=== PATIENT | female | born 1995 | race American Indian/Alaskan Native ===

== ENCOUNTER 2018-01-04 08:28 | Inpatient (IN) | payer MEDICAID ==
[2018-01-04] MEDS ORDERED: ePHEDrine SULFATE IV PRN (08:54)
[2018-01-04] MEDS ORDERED: BRETHINE SUB-Q PRN (08:54)
[2018-01-04] MEDS ORDERED: XYLOCAINE 2% INFILTRATI NR (08:54)
[2018-01-04] MEDS ORDERED: POLYCILLIN/NS 2 GM/100 ML 2 GM/100 ML BAG IV SCH (09:00)
--- NOTE | 2018-01-04 09:15 | History and Physical Report ---
History of Present Illness Date of examination: 01/04/18 (IOL d/t IUGR) Date of admission: 01/04/18 08:28 History of present illness: EDC Calculations LMP: 01/07/2018 EDC Confirmation: 01/07/2018 Gestational Age: 24 4/7 weeks Past History : 4 Term Births: 2 Premature Births: 0 Living Children: 2 Para: 2 Mult. Births: 0 Prev : 0 Prev. attempt? 0 Aborta: 1 Elect. Ab: 1 Spont. Ab: 0 Ectopics: 0 # 1 Delivery date: 2013 Weeks Gestation: 9 Delivery type: EAB # 2 Delivery date: 2016 Weeks Gestation: term labor: no Delivery type: Anesthesia type: epidural Delivery location: [place] Infant Sex: Male weight: 7#7oz # 3 Delivery date: 2017 Weeks Gestation: term labor: no Delivery type: Anesthesia type: epidural Delivery location: [place] [facility] Sex: Male weight: 6# Past Medical History: Negative Past Medical History Past Surgical History: negative Past Medical History Anesthesia Complications: negative Anemia: negative Autoimmune Disorder: negative Bleeding Disorder: negative Blood Transfusions: negative Breast Disease: negative Diabetes: negative Heart Disease: negative Hypertension: negative Hepatitis/Liver Disease: negative Kidney Disease/UTI: negative Neurologic/Epilepsy/Migraines: negative Phlebitis/Varicosities: negative Psychiatric: negative Pulmonary Disease/Asthma: negative Thyroid Disease: negative Hospitalizations: negative Surgery (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 of genital herpes: no Partner hx. of genital herpes: no Rash, Viral, or Febrile illness since last LMP? no TB Risk: no Genetic History Congenital Heart Defect: Mom: no Dad: no Tierra Disease: Mom: no Dad: no Thalassemia Mom: no Dad: no Neural Tube Defect Mom: no Dad: no Down's Syndrome Mom: no Dad: no Joey-Sachs Mom: no Dad: no Sickle Cell Disease/Trait Mom: no Dad: no Hemophilia Mom: no Dad: no Muscular Dystrophy Mom: no Dad: no Cystic Fibrosis Mom: no Dad: no [place] Chorea Mom: no Dad: no Mental Retardation Mom: no Dad: no Fragile X Mom: no Dad: no Other Genetic/Chromosomal Disorder Mom: no Dad: no Child w/other defect Mom: no Dad: no Active Medications (reviewed today): None Current Allergies (reviewed today): No known allergies Laboratory Results Urine HCG: positive Review of Systems General Denies fever, chills, sweats, anorexia, fatigue, weakness, malaise, weight loss and sleep disorder. Denies nausea, vomiting, headache, swelling of legs, abdominal pain, vaginal discharge, vaginal bleeding and contractions. Denies vaginal discharge, incontinence, dysuria, hematuria, urinary frequency, amenorrhea, menorrhagia, abnormal vaginal bleeding, pelvic pain, genital sores, decreased libido, painful periods, painful sex, urinary urgency, hot flashes, vaginal dryness, vaginal itching and vaginal odor. CV Denies chest pains, palpitations, syncope, dyspnea on exertion, orthopnea, PND and peripheral edema. Resp Denies cough, dyspnea at rest, excessive sputum, hemoptysis, wheezing and pleurisy. GI Denies nausea, vomiting, diarrhea, constipation, change in bowel habits, abdominal pain, melena, hematochezia, jaundice, gas/bloating, indigestion/ heartburn, dysphagia and odynophagia. Endo Denies cold intolerance, heat intolerance, polydipsia, polyphagia, polyuria and unusual weight change. Breast Denies left breast lump, right breast lump, nipple discharge, bloody discharge from nipple, breast pain, abnormal mammogram and breast enlargement. MS Denies back pain, joint pain, joint swelling, muscle cramps, muscle weakness, stiffness, arthritis, sciatica, restless legs, leg pain at night and leg pain with exertion. Derm Denies rash, itching, dryness and suspicious lesions. Neuro Denies paralysis, paresthesias, headache, seizures, tremors, vertigo, transient blindness, frequent falls, frequent headaches and difficulty walking. Psych Denies depression, anxiety, irritability and mood swings. Eyes Denies blurring, diplopia, irritation, discharge, vision loss, eye pain and photophobia. ENT Denies earache, ear discharge, tinnitus, decreased hearing, nasal congestion, nosebleeds, sore throat and hoarseness. Allergy Denies urticaria, allergic rash, hay fever and recurrent infections. Heme Denies abnormal bruising, bleeding and enlarged lymph nodes. PHYSICAL EXAM HEENT: PERRLA, normal conjunctiva, external nose and nasal mucosa normal, oropharynx clear Neck/Thyroid: supple, thyroid normal Skin no significant abnormal lesions or rashes Chest: respiratory effort normal, clear to auscultation Breasts: normal without skin changes or masses CV: regular, normal S1-S2, no murmur, no rub, no gallop Abdomen: normal bowel sounds, soft, nontender, no HSM Musculoskeletal: grossly normal ROM in joints, no joint tenderness or muscle weakness Neuro: grossly normal DTRs, sensation, strength, cranial nerves Extremities: no clubbing, cyanosis, or edema [employer] Exams Fundal Ht: 24 size: AGA FHT: + activity: + Past History - Obstetrical History Expected Date of Delivery: 01/07/18 Actual Gestation: 39 Week(s) 4 Day(s) : 4 Para: 2 Hx # Term Pregnancies: 2 Induced : 1 Number of Living Children: 2 Medications and Allergies Allergies Allergy/AdvReac Type Severity Reaction Status Date / Time No Known Allergies Allergy Unverified 01/04/18 09:33 Home Medications Medication Instructions Recorded Confirmed Last Taken Type Pnv No.95/Ferrous Fum/Folic AC 1 tab PO DAILY 01/04/18 01/04/18 01/02/18 History [ Vitamins Tablet] Active Meds: Active Medications Ephedrine Sulfate (Ephedrine Sulfate) 10 mg IV Q2M PRN PRN Reason: Hypotension Fentanyl (Sublimaze) 100 mcg IV Q2H PRN PRN Reason: Labor Pain Lactated Ringer's (Lactated Ringers) 1,000 mls @ 125 mls/hr IV DIRECT PRATIBHA Oxytocin/Sodium Chloride (Pitocin/Ns 20 Unit/1000ml Drip) 20 units in 1,000 mls @ 125 mls/hr IV DIRECT PRATIBHA Oxytocin/Sodium Chloride (Pitocin/Ns 30 Unit/500ml) 30 units in 500 mls @ 4 mls /hr IV Q30MIN PRATIBHA; Protocol Ampicillin Sodium (Ampicillin/Ns 1 Gm/50 Ml) 1 gm in 50 mls @ 100 mls/hr IV Q4HR PRATIBHA; Protocol Ampicillin Sodium (Polycillin/Ns 2 Gm/100 Ml) 2 gm in 100 mls @ 100 mls/hr IV ONCE PRATIBHA; Protocol Lidocaine (Xylocaine 2%) 20 ml INFILTRATI ONCE ONE Stop: 01/04/18 08:55 Mineral Oil (Mineral Oil) 30 ml PO QHS PRN PRN Reason: Constipation Terbutaline Sulfate (Brethine) 0.25 mg SUB-Q ONCE PRN PRN Reason: Hyperstimulation/Hypertonicity - Physical Exam Breasts: Positive: deferred Cardiovascular: Regular rate, Normal S1, Normal S2 Lungs: Positive: Normal air movement Abdomen: Positive: normal appearance, soft, normal bowel sounds. Negative: distention, tenderness Genitourinary (Female): Positive: normal external genitalia Vulva: both: normal Vagina: Positive: normal moisture. Negative: discharge Cervix: Negative: lesion, discharge Uterus: Positive: normal size, normal contour Adnexa: both: normal Anus/Rectum: Positive: normal perianal skin, heme negative. Negative: rectal mass, hemorrhoids Extremities: Deep Tendon Reflex Grade: Normal +2 - Obstetrical FHR: category 1 Uterine Contraction Monitor Mode: External Cervical Dilatation: 1 (per Admission RN) Cervical Effacement Percentage: 50 station: -4 Uterine Contraction Pattern: Irregular Uterine Tone Measurement Phase: Resting Uterine Contraction Intensity: Mild Results Result Diagrams: 01/04/18 09:00 All other labs normal. GBS POSITIVE HBsAg Screen Negative Negative *1 RPR Non Reactive Non Reactive *2 Rubella Antibodies, IgG 6.35 index Immune >0.99 *3 Non-immune <0.90 Equivocal 0.90 - 0.99 Immune >0.99 ABO Grouping A *4 Rh Factor Positive *5 Please note: Prior records for this patient's ABO / Rh type are not available for additional verification. Antibody Screen Negative Negative *6 WBC 8.5 x10E3/uL 3.4-10.8 *7 RBC [L] 3.71 x10E6/uL 3.77-5.28 *8 Hemoglobin [L] 10.2 g/dL 11.1-15.9 *9 Hematocrit [L] 31.0 % 34.0-46.6 *10 MCV 84 fL 79-97 *11 MCH 27.5 pg 26.6-33.0 *12 MCHC 32.9 g/dL 31.5-35.7 *13 RDW 13.9 % 12.3-15.4 *14 Platelets 211 x10E3/uL 150-379 *15 Neutrophils 81 % Not Estab. *16 Lymphs 13 % Not Estab. *17 Monocytes 6 % Not Estab. *18 Eos 0 % Not Estab. *19 Basos 0 % Not Estab. *20 ! Immature Cells <No Reported Value> *21 Neutrophils (Absolute) 6.7 x10E3/uL 1.4-7.0 *22 Lymphs (Absolute) 1.1 x10E3/uL 0.7-3.1 *23 Monocytes(Absolute) 0.5 x10E3/uL 0.1-0.9 *24 Eos (Absolute) 0.0 x10E3/uL 0.0-0.4 *25 Baso (Absolute) 0.0 x10E3/uL 0.0-0.2 *26 ! Immature Granulocytes 0 % Not Estab. *27 ! Immature Grans (Abs) 0.0 x10E3/uL 0.0-0.1 *28 ! NRBC <No Reported Value> *29 Hematology Comments: <No Reported Value> *30 Tests: (2) HB Solu + Rflx [facility] (170912) Hemoglobin (Hgb) Solubility Negative Negative *31 Tests: (3) Panel 982266 ([id number]) HIV Screen 4th Generation wRfx Non Reactive Non Reactive *32 Tests: (4) Gest. Diabetes 1-Hr Screen (565051) ! Gestational Diabetes Screen 65 mg/dL 65-139 *33 According to ADA, a glucose threshold of >139 mg/dL after 50-gram load identifies approximately 80% of women with gestational diabetes mellitus, while the sensitivity is further increased to approximately 90% by a threshold of >129 mg/dL. Tests: (5) HCV Ab w/Rflx to Verification (267335) ! HCV Ab <0.1 s/co ratio 0.0-0.9 *34 Tests: (6) Comment: ([id number]) ! Comment: [facility] *35 Non reactive HCV antibody screen is consistent with no HCV infection, unless recent infection is suspected or other evidence exists to indicate HCV infection. Tests: (7) Urine Culture, Routine ([id number]) Urine Culture, Routine Final report *36 Tests: (8) Result ([id number]) ! Result 1 MUG *37 Mixed urogenital adelina 25,000-50,000 colony forming units per mL Assessment and Plan - Patient Problems (1) Group B Streptococcus carrier state affecting Onset Date: ~01/04/18 Current Visit: Yes Status: Acute Plan to address problem: Will start Ampicillin per protocol when pt is in active labor. (2) IUGR (intrauterine growth restriction) Onset Date: ~01/04/18 Current Visit: Yes Status: Acute Plan to address problem: 22yo @ 39 weeks here today for IOL as per [facility] recommendation d/t IUGR EFW 2% on evaluation on 12-22-17 Last BPP in their office 04/18. Pt is GBS+ will tx with active labor. All orders in EMR. Anticipate vaginal delivery. Dr Winkler adware of pt admission.
[2018-01-04] MEDS: LACTATED RINGERS 1,000 ML IV SCH ×2 (09:30→14:19)
[2018-01-04] MEDS: PITOCin/NS 30 UNIT/500ML 30 UNITS/500 ML BAG IV SCH ×5 (09:30→13:36)
[2018-01-04 09:54] LABS: Hematocrit 34.9 % (30.3-42.9); Hemoglobin 11.6 gm/dl (10.1-14.3); Mean Corpuscular HGB Conc 33 % (30-34); Mean Corpuscular Hemoglobin 28 pg (28-32); Mean Corpuscular Volume 83 fl (79-97); Platelet Count 205 K/mm3 (140-440); Red Blood Count 4.19 M/mm3 (3.65-5.03); Red Cell Distribution Width 14.2 % (13.2-15.2)
--- NOTE | 2018-01-04 13:25 | Progress Note ---
Assessment and Plan Discussed POC with pt. Will continue pitocin until 1700, then PM care and diet. Will place Cervidil @ 1900. Pt understands this is a process and may take a day or two. All questions addressed - Patient Problems (1) Group B Streptococcus carrier state affecting Onset Date: ~01/04/18 Current Visit: Yes Status: Acute (2) IUGR (intrauterine growth restriction) Onset Date: ~01/04/18 Current Visit: Yes Status: Acute Subjective - Subjective Date of service: 01/04/18 (pt states ctx are increasing in strength) Principal diagnosis: IUP @ 39 weeks with IUGR Interval history: EDC Calculations LMP: 01/07/2018 EDC Confirmation: 01/07/2018 Gestational Age: 24 4/7 weeks Past History : 4 Term Births: 2 Premature Births: 0 Living Children: 2 Para: 2 Mult. Births: 0 Prev : 0 Prev. attempt? 0 Aborta: 1 Elect. Ab: 1 Spont. Ab: 0 Ectopics: 0 # 1 Delivery date: 2013 Weeks Gestation: 9 Delivery type: EAB # 2 Delivery date: 2016 Weeks Gestation: term labor: no Delivery type: Anesthesia type: epidural Delivery location: [place] Sex: Male weight: 7#7oz # 3 Delivery date: 2017 Weeks Gestation: term labor: no Delivery type: Anesthesia type: epidural Delivery location: [place] Inf[facility] Sex: Male weight: 6# Past Medical History: Negative Past Medical History Past Surgical History: negative Past Medical History Anesthesia Complications: negative Anemia: negative Autoimmune Disorder: negative Bleeding Disorder: negative Blood Transfusions: negative Breast Disease: negative Diabetes: negative Heart Disease: negative Hypertension: negative Hepatitis/Liver Disease: negative Kidney Disease/UTI: negative Neurologic/Epilepsy/Migraines: negative Phlebitis/Varicosities: negative Psychiatric: negative Pulmonary Disease/Asthma: negative Thyroid Disease: negative Hospitalizations: negative 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 of genital herpes: no Partner hx. of genital herpes: no Rash, Viral, or Febrile illness since last LMP? no TB Risk: no Genetic History Congenital Heart Defect: Mom: no Dad: no Tierra Disease: Mom: no Dad: no Thalassemia Mom: no Dad: no Neural Tube Defect Mom: no Dad: no Down's Syndrome Mom: no Dad: no Joey-Sachs Mom: no Dad: no Sickle Cell Disease/Trait Mom: no Dad: no Hemophilia Mom: no Dad: no Muscular Dystrophy Mom: no Dad: no Cystic Fibrosis Mom: no Dad: no [place] Chorea Mom: no Dad: no Mental Retardation Mom: no Dad: no Fragile X Mom: no Dad: no Other Genetic/Chromosomal Disorder Mom: no Dad: no Child w/other defect Mom: no Dad: no Active Medications (reviewed today): None Current Allergies (reviewed today): No known allergies Laboratory Results Urine HCG: positive Review of Systems General Denies fever, chills, sweats, anorexia, fatigue, weakness, malaise, weight loss and sleep disorder. Denies nausea, vomiting, headache, swelling of legs, abdominal pain, vaginal discharge, vaginal bleeding and contractions. Denies vaginal discharge, incontinence, dysuria, hematuria, urinary frequency, amenorrhea, menorrhagia, abnormal vaginal bleeding, pelvic pain, genital sores, decreased libido, painful periods, painful sex, urinary urgency, hot flashes, vaginal dryness, vaginal itching and vaginal odor. CV Denies chest pains, palpitations, syncope, dyspnea on exertion, orthopnea, PND and peripheral edema. Resp Denies cough, dyspnea at rest, excessive sputum, hemoptysis, wheezing and pleurisy. GI Denies nausea, vomiting, diarrhea, constipation, change in bowel habits, abdominal pain, melena, hematochezia, jaundice, gas/bloating, indigestion/ heartburn, dysphagia and odynophagia. Endo Denies cold intolerance, heat intolerance, polydipsia, polyphagia, polyuria and unusual weight change. Breast Denies left breast lump, right breast lump, nipple discharge, bloody discharge from nipple, breast pain, abnormal mammogram and breast enlargement. MS Denies back pain, joint pain, joint swelling, muscle cramps, muscle weakness, stiffness, arthritis, sciatica, restless legs, leg pain at night and leg pain with exertion. Derm Denies rash, itching, dryness and suspicious lesions. Neuro Denies paralysis, paresthesias, headache, seizures, tremors, vertigo, transient blindness, frequent falls, frequent headaches and difficulty walking. Psych Denies depression, anxiety, irritability and mood swings. Eyes Denies blurring, diplopia, irritation, discharge, vision loss, eye pain and photophobia. ENT Denies earache, ear discharge, tinnitus, decreased hearing, nasal congestion, nosebleeds, sore throat and hoarseness. Allergy Denies urticaria, allergic rash, hay fever and recurrent infections. Heme Denies abnormal bruising, bleeding and enlarged lymph nodes. PHYSICAL EXAM HEENT: PERRLA, normal conjunctiva, external nose and nasal mucosa normal, oropharynx clear Neck/Thyroid: supple, thyroid normal Skin no significant abnormal lesions or rashes Chest: respiratory effort normal, clear to auscultation Breasts: normal without skin changes or masses CV: regular, normal S1-S2, no murmur, no rub, no gallop Abdomen: normal bowel sounds, soft, nontender, no HSM Musculoskeletal: grossly normal ROM in joints, no joint tenderness or muscle weakness Neuro: grossly normal DTRs, sensation, strength, cranial nerves Extremities: no clubbing, cyanosis, or edema HEALTH SAFETY AND ENVIRONMENT MANAGER Exams Fundal Ht: 24 size: AGA FHT: + activity: + Patient reports: movement normal Objective - Vital Signs Vital Signs: Vital Signs - 12hr 01/04/18 01/04/18 01/04/18 09:00 09:10 09:25 Temperature 97.6 F Pulse Rate 102 H 100 H 100 H Respiratory 18 Rate Blood Pressure 100/66 110/63 105/65 [Left] 01/04/18 01/04/18 01/04/18 09:41 09:54 10:10 Temperature Pulse Rate 100 H 89 96 H Respiratory Rate Blood Pressure 104/63 100/65 99/69 [Left] 01/04/18 01/04/18 01/04/18 10:25 10:40 10:55 Temperature Pulse Rate 85 90 85 Respiratory Rate Blood Pressure 103/70 105/69 98/66 [Left] 01/04/18 01/04/18 01/04/18 11:10 11:24 12:36 Temperature 97.6 F Pulse Rate 93 H 102 H 83 Respiratory 18 Rate Blood Pressure 105/70 113/69 109/75 [Left] - Exam Breasts: deferred Cardiovascular: Regular rate Lungs: Clear to auscultation, Normal air movement Abdomen: Present: normal appearance, soft, normal bowel sounds Uterus: Present: normal FHR: category 1 Uterine Contraction Monitor Mode: External Cervical Dilatation: 1 (posterior; OOP) Cervical Effacement Percentage: 40 station: -3 Uterine Contraction Pattern: Regular Uterine Tone Measurement Phase: Resting Uterine Contraction Intensity: Mild Extremities: normal Deep Tendon Reflex Grade: Normal +2 - Labs Labs: Laboratory Results - last 24 hr 01/04/18 01/04/18 07:00 09:00 WBC 9.6 RBC 4.19 Hgb 11.6 Hct 34.9 MCV 83 MCH 28 MCHC 33 RDW 14.2 Plt Count 205 Blood Type A POSITIVE Antibody Screen Negative
[2018-01-04] MEDS ORDERED: AMBIEN PO PRN (13:27)
--- NOTE | 2018-01-04 13:35 | Event Note ---
Date: 01/04/18 (pt sitting up) Will decrease pitocin to 10mu and observe
[2018-01-04] MEDS ORDERED: AMPICILLIN/NS 1 GM/50 ML 1 GM/50 ML BAG IV SCH (14:00)
[2018-01-04] MEDS: SUBLIMAZE IV PRN ×2 (14:18→15:20)
[2018-01-04] MEDS ORDERED: METHERGINE IM ONE ×2 (16:19→17:07)
[2018-01-04] MEDS: PITOCin/NS 20 UNIT/1000ML DRIP 20 UNITS/1,000 ML BAG IV SCH ×2 (16:28→19:34)
[2018-01-04] MEDS ORDERED: PHENERGAN PO PRN (17:11)
[2018-01-04] MEDS ORDERED: PHENERGAN PR PRN (17:11)
[2018-01-04] MEDS ORDERED: DULCOLAX PR PRN (17:11)
[2018-01-04] MEDS ORDERED: MILK OF MAGNESIA PO PRN (17:11)
[2018-01-04] MEDS ORDERED: TUCKS PAD TP PRN (17:11)
[2018-01-04] MEDS ORDERED: TYLENOL PO PRN (17:11)
[2018-01-04] MEDS ORDERED: ZOFRAN IV PRN (17:11)
[2018-01-04] MEDS ORDERED: BENADRYL PO PRN (17:11)
[2018-01-04] MEDS ORDERED: LANSINOH TP PRN (17:11)
--- NOTE | 2018-01-04 17:23 | Procedure Note ---
OB Delivery Note - Delivery Date of Delivery: 01/04/18 Lead Man Over [employer] In [employer]: LANEY HANKS (precipitous delivery) Estimated blood loss: 500cc - Vaginal Delivery presentation: vertex Delivery position: OA Intrapartum events: precipitous labor- <3hr, other(please specify) (IUGR) Delivery induction: oxytocin Delivery augmentation: pitocin Delivery monitor: external FHT, external uterine Route of delivery: Delivery placenta: spontaneous Delivery cord: nuchal cord, 3 umbilical vessels Episiotomy: none Delivery laceration: none Anesthesia: intravenous Delivery comments: Called urgently to room Pt had made rapid progress to complete live born female over intact perineum CAN X 1 reduced after delivery Baby to mom skin to skin Cord clamped and cut Cord blood obtained Placenta and membrane del complete and intact, 3 vessel cord. Placenta to pathology - IUGR. Pit IVFs Uterus boggy Several lg clots removed, massage. methergine, second sweep done, again several lg clots expressed. 8/9, EBL 500, Wgt 6-3. Mom and baby remain LDR stable. FF @ umb Lochia moderate. - Infant A at 1 minute: 8 at 5 minutes: 9 Infant Gender: Female (wgt 6-3)
[2018-01-04] MEDS: MOTRIN PO SCH (17:32)
[2018-01-04] MEDS ORDERED: SODIUM CHLORIDE FLUSH SYRINGE 10 ML IV NR (18:00)
[2018-01-04] MEDS ORDERED: CERVIDIL VG ONE (19:00)
[2018-01-04] MEDS ORDERED: MINERAL OIL PO PRN (22:00)
[2018-01-04] MEDS: METHERGINE PO SCH (22:32)
[2018-01-04] MEDS: NORCO 5/325 PO PRN (23:43)
[2018-01-05] MEDS: MOTRIN PO SCH ×4 (04:36→18:47)
[2018-01-05] MEDS ORDERED: M-M-R II VACCINE SUB-Q ONE (06:00)
[2018-01-05] MEDS ORDERED: BOOSTRIX IM ONE (06:00)
[2018-01-05] MEDS: METHERGINE PO SCH ×2 (06:32→14:39)
[2018-01-05 06:36] LABS: Hematocrit 30.7 % (30.3-42.9); Hemoglobin 9.7 gm/dl (10.1-14.3)
[2018-01-05] MEDS: NORCO 5/325 PO PRN ×2 (07:31→16:03)
--- NOTE | 2018-01-05 08:57 | Discharge Summary ---
Providers - Providers Date of Admission: 01/04/18 08:28 Date of discharge: 01/05/18 (desires d/c home today) Attending physician: CAROLE LEMON Primary care physician: CAROLE LEMON Hospitalization Reason for admission: induction of labor for IUGR Condition: Good Pertinent studies: H&H 9.7/30.7 Procedures: uncomplicated vaginal delivery Hospital course: uncomplicated vaginal and course Disposition: DC-01 TO HOME OR SELFCARE - Discharge Diagnoses (1) Spontaneous vaginal delivery Status: Acute Core Measure Documentation - Palliative Care Palliative Care/ Comfort Measures: Not Applicable - Core Measures Any of the following diagnoses?: none Exam - Constitutional Vitals: Temp Pulse Resp BP Pulse Ox 98.2 F 81 20 98/64 98 01/05/18 04:33 01/05/18 04:33 01/05/18 07:31 01/05/18 04:33 01/05/18 04:33 General appearance: Present: no acute distress, well-nourished - EENT Eyes: Present: PERRL ENT: hearing intact, clear oral mucosa - Neck Neck: Present: supple, normal ROM - Respiratory Respiratory effort: normal Respiratory: bilateral: CTA - Cardiovascular Heart Sounds: Present: S1 & S2. Absent: rub, click - Extremities Extremities: pulses symmetrical, No edema Peripheral Pulses: within normal limits - Abdominal General gastrointestinal: Present: soft, non-tender, non-distended, normal bowel sounds Female genitourinary: Present: normal - Integumentary Integumentary: Present: clear, warm, dry - Musculoskeletal Musculoskeletal: gait normal, strength equal bilaterally - Psychiatric Psychiatric: appropriate mood/affect, intact judgment & insight - Neurologic Neurologic: CNII-XII intact, moves all extremities - Additional findings Additional findings: VSSAF, H&H stable w/o s/s anemia. fundus firm, lochia scant. Plan Activity: no restrictions Diet: regular Follow up with: CAROLE LEMON MD [Primary Care Provider] - 02/05/18 (Congratulations! Please call [phone] to schedule your appointment in 4 weeks. Call for any questions or concerns.)
[2018-01-05] MEDS: PRENATAL VITAMIN PO SCH (12:42)
[2018-01-06] MEDS: NORCO 5/325 PO PRN (05:58)
[2018-01-06] MEDS: MOTRIN PO SCH ×3 (05:58→12:15)
[2018-01-06] MEDS: PRENATAL VITAMIN PO SCH (10:29)
[2018-01-06 17:40] VITALS: BP 101/67
== END 2018-01-06 17:35 | disposition home or self-care (01) | DRG 775 ==
LOC: LD 08:28 → OB 18:17
PROVIDERS: ADMIT Obstetrics & Gynecology; ATTEND Obstetrics & Gynecology
PROC: 10E0XZZ Delivery of Products of Conception, External Approach (ICD-10-PCS; principal; 2018-01-04)
PROC: 3E033VJ Introduction of Other Hormone into Peripheral Vein, Percutaneous Approach (ICD-10-PCS; 2018-01-04)
DX: O36.5930 Maternal care for other known or suspected poor fetal growth, third trimester, not applicable or unspecified (principal); O99.824 Streptococcus B carrier state complicating childbirth; O69.81X0 Labor and delivery complicated by cord around neck, without compression, not applicable or unspecified; Z37.0 Single live birth; Z3A.39 39 weeks gestation of pregnancy
CPT/HCPCS: 36415; 85014; 85018; 85027; 86592; 86850; 86900; 86901; 88307; J0290; J2210; J2590; J3010; J7120